=== PATIENT | female | born 1930 | race Caucasian/White ===

== ENCOUNTER 2017-01-15 08:16 | Outpatient (CLI) | payer MEDICARE | END 2017-01-15 08:17 | disposition home or self-care (01) | LOC: MADLAB 08:16 | PROVIDERS: ATTEND Internal Medicine Cardiovascular Disease | DX: Z51.81 Encounter for therapeutic drug level monitoring (principal); Z79.899 Other long term (current) drug therapy | CPT/HCPCS: 36415; 80061; 84450; 84460 ==